=== PATIENT | female | born 2000 | race Two or more races ===

== ENCOUNTER 2020-08-15 05:39 | Day surgery (SDC) | payer OTHER ==
[~2020-08-15 05:39] MED LIST: DIAMOX PO
== END 2020-08-15 14:00 | disposition home or self-care (01) ==
LOC: CIR.AMB 05:39
PROVIDERS: ATTEND Plastic Surgery
DX: N62 Hypertrophy of breast (principal); Z20.822 Contact with and (suspected) exposure to COVID-19